=== PATIENT | female | born 1985 | race Caucasian/White ===

== ENCOUNTER 2023-05-23 14:58 | Emergency (ER) | payer SELFPAY ==
--- OUTSIDE RECORDS SUMMARY | 2023-05-23 15:01 | XMS REPORT | Continuity of Care Document ---
Author Name Unknown Address [address] [place] [address] [address] [place] [address] [facility] thconnect Address [address] [facility]. [address] [place] [address] Care Team Providers Care Survey Project Manager Name Role Phone PCP, PATIENT DOES NOT HAVE A Primary Care Physic eduardo Unavailable INDU VEGA Attending Clinician Unavailable Indu Vega PA-C Attending Clinician [phone] Unknown, Attending Attending Clinician Unavailab JOVITA Longoria Attending Clinician Unavailable JOVITA PALACIOS Attending Clinician Unavailable Doctor Unassigned, [place] Attending Clinician U navailable Payers Payer Name Policy Type Policy Number Effective Date Expirati on Date Source [facility] [id number] 2022 00:00:00 Problems Condition Name Condition Details Condition Category Status Onset Date Resolution Date Last Treatment Date Treating Clinician Comments Source Hypertensi on, unspecifie d type Hypertensi on, unspecifie d type Disease Active 09-17 00:00: 00 [facility] Anxiety Anxiety Disease Active 09-17 00:00: 00 [facility] Allergies, Adverse Reactions, Alerts Allergy Name Allergy Type Status Severity Reaction(s) Onset Date Inactive Date Treating Clinician Comments Source NO KNOWN ALLERGIE S Drug Class Active [facility] Social History Social Habit Start Date Stop Date Quantity Comments Source Gender identity [facility] Tobacco use and exposure 2022-09-17 00:00:00 2022-09-17 00:00:00 Smokeless tobacco non-user [facility] Alcohol intake 2022-09-17 00:00:00 2022-09-17 00:00:00 Lifetime non-drinker (finding) [facility] History of Social function 2022-09-17 00:00:00 2022-09-17 00:00:00 [facility] Sex Assigned At 1985 00:00:00 1985 00:00:00 [facility] Smoking Status Start Date Stop Date Source Tobacco smoking consumption unknown [facility] Never smoked tobacco [facility] Medications Ordered Medication Name Filled Medication Name Start Date Stop Date Current Medication? Ordering Clinician Indication Dosage Frequency Signature (SIG) Comments Components Source nirmatrelvi r-ritonavir (PAXLOVID) 300 mg (150 mg x 2)-100 mg tablet 03-27 00:00: 00 Yes [id number] 3{tbl} Take 3 tablets by mouth in the morning and 3 tablets in the evening. [facility] bromphenira mine-pseudo ephedrine-D M (BROMFED DM) 2-30-10 mg/5 mL syrup 03-27 00:00: 00 Yes [id number] 5mL Take 5 mL by mouth 3 (three) times daily as needed for Cold symptoms or Cough. [facility] amoxicillin -clavulanat e (AUGMENTIN) 875-125 mg per tablet 03-27 00:00: 00 Yes [id number] 1{tbl} Take 1 tablet by mouth in the morning and 1 tablet in the evening. [facility] escitalopra m oxalate 10 mg tablet 09-17 15:56: 12 09-17 00:00 :00 No 10mg Take 1 tablet by mouth in the morning. [facility] escitalopra m oxalate 10 mg tablet 09-17 00:00: 00 Yes [id number] 10mg Take 1 tablet by mouth in the morning. [facility] metoprolol tartrate 75 mg Tab 09-17 00:00: 00 Yes [id number] 1{tbl} Take 1 tablet by mouth in the morning. [facility] NIFEdipine ER 60 mg tablet 09-17 00:00: 00 Yes [id number] 60mg Take 1 tablet by mouth in the morning. [facility] metoprolol tartrate 75 mg Tab 07-23 00:00: 00 09-17 00:00 :00 No 1{tbl} Take 1 tablet by mouth in the morning. [facility] NIFEdipine ER 60 mg tablet 07-22 00:00: 00 09-17 00:00 :00 No 60mg Take 1 tablet by mouth in the morning. [facility] Vital Signs Vital Name Observation Time Observation Value Comments S hueyce Systolic blood pressure 2023-03-28 00:33:00 162 mm[Hg] [facility] Diastolic blood pressure 2023-03-28 00:33:00 114 mm[Hg] [facility] Body temperature 2023-03-28 00:31:00 37.89 Edith [facility] Respiratory rate 2023-03-28 00:31:00 19 /min [facility] Body height 2023-03-28 00:31:00 180.3 cm [facility] Body weight 2023-03-28 00:31:00 125.646 kg [facility] BMI 2023-03-28 00:31:00 38.63 kg/m2 [facility] Oxygen saturation in Arterial blood by Pulse oximetry 2023-03-28 00:31:00 99 /min [facility] Systolic blood pressure 2022-09-17 19:57:00 137 mm[Hg] [facility] Diastolic blood pressure 2022-09-17 19:57:00 90 mm[Hg] [facility] Heart rate 2022-09-17 19:50:00 81 /min [facility] Body temperature 2022-09-17 19:50:00 36.06 Edith [facility] Body height 2022-09-17 19:50:00 180.3 cm [facility] Body weight 2022-09-17 19:50:00 124.059 kg [facility] BMI 2022-09-17 19:50:00 38.15 kg/m2 [facility] Oxygen saturation in Arterial blood by Pulse oximetry 2022-09-17 19:50:00 100 /min [facility] Procedures Procedure Date / Time Performed Performing Clinicia n Source POCT MOLECULAR FLU 2023-03-28 00:41:00 Unknown, Attend ing [facility] POCT SARS-COV-2 ANTIGEN (BINAX NOW) 2023-03-28 00:33:00 Lola Marvin [facility] ASSIGNMENT OF BENEFITS 2022-09-17 19:31:55 Docto r Unassigned, Parker Strip [facility] Encounters Start Date/Time End Date/Time Encounter Type Admission Type Attending [facility] Care Department Encounter ID Source 2023-03-27 18:20:00 2023-03-27 19:00:27 Outpatient R INDU VEGA [facility] [id number] [facility] 2023-03-27 18:20:00 2023-03-27 18:40:00 Urgent Care Indu Vega Unknown, Attending [facility] 1.2.840.114 350.1.13.10 4.2.7.2.686 [id number] [facility] 2022-10-17 16:20:00 2022-10-17 16:20:00 Outpatient JOVITA DENNISON CHRISTINE [facility] [id number] [facility] 2022-09-20 00:00:00 2022-09-20 00:00:00 Telephone Suzanne [facility] GABRIELLE[facility] 1.2.840.114 350.1.13.10 4.2.7.2.686 [id number] [facility] 2022-09-17 14:50:00 2022-09-17 16:00:20 Office Visit Suzanne [facility] GABRIELLE[facility] 1.2.840.114 350.1.13.10 4.2.7.2.686 [id number] [facility] 2022-09-17 14:50:00 2022-09-17 16:00:20 Outpatient JOSIAS DENNISONINE KLEKeyona, JOVITA [facility] [id number] [facility] 2022-09-17 00:00:00 2022-09-17 00:00:00 Orders Only Doctor Unassigned, [place] Strip [facility] 1.2.840.114 350.1.13.10 4.2.7.2.686 [id number] [facility] Results Test Description Test Time Test Comments Results Result Co mments Source [facility] (BINAX NOW)2023-03-28 00:48:00* Test Item Value Reference Range Interpretation Comme nts POCT SARS-COV-2 ANTIGEN (robel t code = 32321-7) Positive Not Detected A On board controls acceptable with C Line (test code = 3574) Yes Lab Interpretation (test cod e = 18168-2) Abnormal [facility] Notes Date/Time Note Provider Source 2022-09-23 13:47:45 35wqonPgHWzksPyfCH+8 daptXwAlAhVS p/bfVd2kFzfVIkagK022TgP8+hK4+2fu 1774-01-63J62:47:45 Contacted patient, patient stated she will start taking ibuprofen 800mg and call back if it does not help. 74792-9Ipdcogmmr encounter JywvFS5552-43-97X69:48:31Telepho ne encounter NoteTXT1.2.840.403790.1.13.104.2 .7.2.780152|[id number] e for patient kclv70458-2HeeoKDKPUUFAVO[address] PyfiPtzijuojjOnsjyxejoHQRA558814 8271IICUMVMRWOTSOVKYNBIVIZ6716-7 :48:311.2.840.148689.1.72 .3.15|1.2.840.687733.1.13.104.2. 7.2.727879_[id number] [facility] 2022-09-23 11:19:55 VzW4Bzu7nb9eApfcci1K glOjSfEzNBa7 oYR+ecuNeNLsSjLL1NWNIMpEED4zXbMw 3467-31-12I11:19:55 Attempted to contact patient. No answer. Left message to call back. 99989-4Vyeuzicca encounter TdcuJR2615-77-42Q93:20:03Telepho ne encounter NoteTXT1.2.840.340279.1.13.104.2 .7.2.078591|[id number] e for patient znrz46571-7EcdnCMKZUTIFTY[address] 1248IGVNPFNHMHQRHZIMWMUIEM7242-0 8-07T11:20:031.2.840.869029.1.72 .3.15|1.2.840.434578.1.13.104.2. 7.2.727879_[id number] [facility] 2022-09-20 17:23:23 842JW6s6f7iyJRQ+ooHs JQFYoTJrT9H3 dFH7LP/b9kEshLtmZWX9H0pfAJvgFUDv 8224-14-55C41:23:23 Attempted to contact patient. No answer. Left message to call back.Kelsie Solomon LVN 09/20/2022 5:23 PM 63786-4Cwuubmnzc encounter NjwyTR7286-28-16P37:23:39Telepho ne encounter NoteTXT1.2.840.792461.1.13.104.2 .7.2.930213|[id number] e for patient tacm05053-0HqjvYT820402582Mqjrej hermes Solomon [address] 3773CECCKIVBVLCOOSZDLMJHOV1075-3 7:23:391.2.840.130515.1.72 .3.15|1.2.840.923879.1.13.104.2. 7.2.727879_[id number] Kelsie Solomon [facility] 2022-09-20 17:12:24 BdsshGku9Az1LuF9DqOA 6TX60+4Utw44 IfVUP/e95GAzCsqqL9lKe7rNmuv1ceE5 3508-76-92N68:12:24 I would recommend prescription strength anti-inflamatories. Does she have any? 38885-0Xyudglyby encounter FzqwYV6076-11-88K04:13:05Telepho ne encounter NoteTXT1.2.840.874810.1.13.104.2 .7.2.476614|[id number] e for patient rcpg96843-6ObldFUHWPEFHRE[address] 5526ZGEHPVKAYVADNDLGTUJEMZ1416-0 7:13:051.2.840.008743.1.72 .3.15|1.2.840.529842.1.13.104.2. 7.2.727879_[id number] [facility] 2022-09-20 16:13:11 pxZCPMjbtqW9FGJJFcMm Wj74/nC68YMY fqKei1PPETw+KSWFxKmdwjeXVCsD1kdU 6735-13-87N22:13:11 Please review and advise. Recent VisitsDate Type Provider Dept 09/17/22 Office Visit Jovita Palacios MD [facility] Showing recent visits within past 540 days with a meds authorizing provider and meeting all other requirementsFuture AppointmentsDate Type Provider Dept 10/17/22 Appointment Jovita Palacios MD [facility] Showing future appointments within next 150 days with a meds authorizing provider and meeting all other requirements 85338-0Qkrzolsih encounter KrcyYR1821-19-72L72:13:28Telepho ne encounter NoteTXT1.2.840.108342.1.13.104.2 .7.2.863243|[id number] e for patient xppa49061-6LowlIOFMUQZRTU[address] EkoaGyuuvikrjKnyhprkxzMJKS703770 5586MVEPXGWVIPTAUAZEZWCDGM9315-9 8-04T16:13:281.2.840.041817.1.72 .3.15|1.2.840.906007.1.13.104.2. 7.2.727879_[id number] [facility] 2022-09-20 15:48:27 7pqGOGDR8fDbfXOP919K PXOKzxLwA6Hl b+M7h9EGS0YhSrgn8IE6TJa2Aw6C9YX/ 3586-23-62A83:48:27 Pt called and states that she is still having knee pain. She is wanting recommendations on what to do next. Please advise. Call back number: [phone] signed by Erika Persaud at 09/20/2022 3:49 PM AOL55808-4Cdmtarbjv encounter PtpgOF3019-72-89Y76:49:19Telepho ne encounter NoteTXT1.2.840.258367.1.13.104.2 .7.2.483583|[id number] [facility]mes [facility] patient zkwe13862-4ThvzZJ05990704Crffcly R [address] YlfzThelinzmnCbjsaeqgqGEKQ773612 0753SIAAJXWWHRHFZHSPBSIBVL6934-1 8-04T15:49:191.2.840.360673.1.72 .3.15|1.2.840.587060.1.13.104.2. 7.2.727879_[id number] Erika Pritchard [facility]"
--- NOTE | 2023-05-23 16:19 | RAD REPORT ---
EXAM DESCRIPTION: RAD - Knee Right 3 View - 05/23/2023 4:09 pm CLINICAL HISTORY: laceration COMPARISON: No comparisons FINDINGS/IMPRESSION: No acute fracture. No malalignment. Slight medial and lateral compartment narro wing. No radiopaque foreign body.
[2023-05-23] MEDS ORDERED: TDAP (DIPHTH,PERTUSS(ACELL),TET VAC) 0.5 ML VIAL IMVAC ONE (16:25)
[2023-05-23] MEDS ORDERED: LIDOCAINE 1% MPF 5 ML VIAL ONE (17:48)
--- NOTE | 2023-05-23 18:06 | EDPHYS ---
Physician Documentation [facility] Name: Chelita Beltran Age: 37 yrs Sex: Female : 1985 Arrival Date: 05/23/2023 Time: 14:58 Bed 16 Private MD: ED Physician Timoteo Luz HPI: 05/22 15:45 This 37 yrs old Female presents to ER via Ambulatory with complaints of Leg Laceration. cp 15:45 The patient has a laceration related to: working, occurred at work, and [employer]. cp 15:45 The laceration(s) is(are) located on the right knee. Onset: The symptoms/episode cp began/occurred just prior to arrival. Associated signs and symptoms: The patient has no apparent associated signs or symptoms. 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 - Infectious Disease History:: Denies. - Social history:: Smoking status: Patient denies any tobacco usage or history of. ROS: 15:50 Neck: Negative for pain with movement, pain at rest, cp 15:50 Back: Negative for pain at rest, pain with movement, 15:50 Skin: Positive for laceration(s), of the right knee, 15:50 All other systems are negative, Exam: 15:55 Constitutional: The patient appears in no acute distress, alert, awake, well developed, cp well nourished, obese, 15:55 Head/Face: Normocephalic, atraumatic. cp 15:55 Cardiovascular: Rate: normal, 15:55 Respiratory: the patient does not display signs of respiratory distress, Respirations: normal, 15:55 Skin: injury, laceration(s), the wound is approximately 2 cm(s), of the medial side of right knee below joint, that can be described as no foreign body, linear, with mild bleeding, Vital Signs: 15:23 BP 183 / 127; Pulse 75; Resp 17; Temp 97.9; Pulse Ox 99% ; Weight 113.4 kg; Height 5 ll1 ft. 11 in. ; Pain 3/10; 17:54 BP 155 / 108; Pulse 62; Resp 16; Pulse Ox 100% on R/A; tl4 18:28 BP 168 / 99; Pulse 68; Resp 16; Temp 97.9(O); Pulse Ox 100% on R/A; Pain 0/10; tl4 15:23 Body Mass Index 34.87 (113.40 kg, 180.34 cm) ll1 15:23 Pain Scale: Adult ll1 18:28 Pain Scale: Adult tl4 Laceration: 18:10 Wound Repair of 2cm ( 0.8in ) subcutaneous laceration to medial side of right knee. cp Linear shaped.. Distal neuro/vascular/tendon intact. Anesthesia: Local anesthetic administered with 3 mls of 1% lidocaine. Wound prep: Simple cleansing by me. Skin closed with 2 4-0 Prolene using simple sutures and sterile technique. Dressed with Bacitracin, bandaid. Patient tolerated well. MDM: 15:26 Patient medically screened. cp 18:05 Data reviewed: vital signs, nurses notes, radiologic studies, plain films. cp 18:05 Differential diagnosis: superficial laceration, vascular injury, foreign body. cp Independent interpretation of the following test(s) in the Emergency Department X-Ray: My interpretation is images of right knee negative for foreign body. Counseling: I had a detailed discussion with the patient and/or guardian regarding the historical points, exam findings, and any diagnostic results supporting the discharge/admit diagnosis, radiology results, the need for outpatient follow up, a family practitioner, to return to the emergency department if symptoms worsen or persist or if there are any questions or concerns that arise at home. Response to treatment: the patient's symptoms have markedly improved after treatment, and as a result, I will discharge patient. 05/22 15:31 Order name: XRAY Knee RIGHT 3 view; Complete Time: 17:01 cp 05/22 16:41 Order name: Wound Care; Complete Time: 18:28 cp 04/05 16:41 Order name: Dressing - Wound; Complete Time: 17:53 cp 05/22 16:41 Order name: Gloves, Sterile; Complete Time: 17:53 cp 05/22 16:41 Order name: Setup Suture Tray; Complete Time: 17:53 cp 05/22 17:10 Order name: Blood Pressure Recheck; Complete Time: 17:54 cp Administered Medications: 16:29 Drug: Tetanus-Diphtheria Toxoid IM Adult 0.5 ml IM once; Provide Vaccine Information ll1 Statement (VIS). {Coiled Tubing Supervisor: Fluid; Exp: FriMar 01 2025; Lot #: [id number]; Series: 1 of ; Patient Consent: Obtained; Date/Time: ; Source Name: Chelita Beltran; Source Relationship: Self; [facility] [address]; ; Education: Provided; VIS Presented Date: ; VIS Publication: Tetanus/Diphtheria (Td) VIS 04/12/2014 (historic)} Route: IM; Site: right gluteus; 17:53 Follow up: Response: No adverse reaction tl4 17:53 Drug: Lidocaine Infiltration (1 %) 5 ml 5 ml Infiltration once; to bedside {Note: tl4 Administered by PA. Mar} Volume: 5 ml; Route: Infiltration; 17:54 Follow up: Response: No adverse reaction tl4 Disposition Summary: 05/23/23 18:06 Discharge Ordered Notes: Location: Home cp Problem: new cp Symptoms: have improved cp Condition: Stable cp Diagnosis - Laceration without foreign body of knee - right cp Followup: cp - With: Private Physician - When: 7 - 10 days - Reason: Staple/Suture removal Discharge Instructions: - Discharge Summary Sheet cp - Laceration Care, Adult cp - Sutured Wound Care cp Forms: - Medication Reconciliation Form cp - Thank You Letter cp - Antibiotic Education cp - Prescription Opioid Use cp - Patient Portal Instructions cp - Leadership Thank You Letter cp Prescriptions: - Cephalexin 500 mg Oral capsule - take 1 capsule ORAL route every 8 hours for 7 days; 21 capsule; Refills: 0, cp Product Selection Permitted Signatures: Dispatcher [employer] EDAL Aba Manzanares PA PA cp Lewis, Lynsay, RN RN ll1 Buzz Stroud RN RN tl4 Corrections: (The following items were deleted from the chart) 05/23 18:12 18:11 Skin: Positive for laceration(s), of the right knee, cp cp 18:12 18:11 Back: Negative for pain at rest, pain with movement, cp cp 18:12 18:11 Neck: Negative for pain with movement, pain at rest, cp cp 18:12 18:11 All other systems are negative, cp cp
--- NOTE | 2023-05-23 18:06 | ER ---
Nurse's Notes [facility] Name: Chelita Beltran Age: 37 yrs Sex: Female : 1985 Arrival Date: 05/23/2023 Time: 14:58 Bed 16 Private MD: Diagnosis: Laceration without foreign body of knee-right Presentation: 05/22 15:23 Chief complaint: Patient states: Cut R inner thigh area on constance equipment today at ll1 work. No active bleeding, would like to update tetanus. Coronavirus screen: Client denies travel out of the [place] in the last 14 days. At this time, the client does not indicate any symptoms associated with coronavirus-19. Ebola Screen: Patient denies travel to an Ebola-affected area in the 21 days before illness onset. Initial Sepsis Screen: Does the patient meet any 2 criteria? No. Patient's initial sepsis screen is negative. Does the patient have a suspected source of infection? No. Patient's initial sepsis screen is negative. Risk Assessment: Do you want to hurt yourself or someone else? Patient reports no desire to harm self or others. Onset of symptoms was May 23, 2023. 15:23 Method Of Arrival: Ambulatory ll1 15:23 Acuity: TRISTAN 4 ll1 Triage Assessment: 15:24 General: Appears uncomfortable, Behavior is cooperative, appropriate for age, anxious. ll1 Pain: Complains of pain in right leg Quality of pain is described as aching. 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 Musculoskeletal:. 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:00 LMP N/A - control method, Not tl4 Historical: - Allergies: 17:55 No Known Allergies; tl4 - Home Meds: 17:55 metoprolol succinate 25 mg oral Tablet, Extended Release 24 hr 3 tabs daily [Active]; tl4 nifedipine 60 mg Oral tablet, extended release 1 tab daily [Active]; citalopram 10 mg tablet 1 tab daily [Active]; aspirin 81 mg Oral capsule 1 cap daily [Active]; Zyrtec 10 mg Oral tablet 1 tab daily [Active]; - PMHx: 17:55 Hypertensive disorder; Depressive disorder; tl4 Historical Immunization: - Administered Vaccines 17:53 Lidocaine Infiltration (1 %) 5 ml tl4 16:29 Tetanus-Diphtheria Toxoid IM Adult 0.5 ml ll1 Steam Turbine Operator: Kimble; Exp: FriMar 01 2025; Lot #: [id number]; Series: 1 of 1; Patient Consent: Obtained; Date/Time: ; Source Name: Chelita Beltran; Source Relationship: Self; Address Information: [facility] [address], [facility] [address]; ; Education: Provided; VIS Presented Date: ; VIS Publication: Tetanus/Diphtheria (Td) VIS 04/12/2014 (historic) - Immunization history:: Adult Immunizations up to date, Last tetanus immunization: < 10 years ago. - Infectious Disease History:: Denies. - Social history:: Smoking status: Patient denies any tobacco usage or history of. Screenin:58 [facility] ED Fall Risk Assessment (Adult) History of falling in the last 3 months, tl4 including since admission No falls in past 3 months (0 pts) Confusion or Disorientation No (0 pts) Intoxicated or Sedated No (0 pts) Impaired Gait No (0 pts) Mobility Assist Device Used No (0 pt) Altered Elimination No (0 pt) Score/Fall Risk Level 0 - 2 = Low Risk Oriented to surroundings, Maintained a safe environment, Educated pt \T\ family on fall prevention, incl call for assistance when getting out of bed, Assessed \T\ reinforced patient's understanding of fall precautions, Hourly rounding (assess needs \T\ fall precautionary measures) done, Used ambulatory aids as needed (educated on \T\ assisted with), Used gait belt as appropriate. Abuse screen: Denies threats or abuse. Denies injuries from another. Nutritional screening: No deficits noted. Tuberculosis screening: No symptoms or risk factors identified. Assessment: 16:30 Reassessment: No changes from previously documented assessment. Patient and/or family ll1 updated on plan of care and expected duration. Pain level reassessed. Patient is alert, oriented x 3, equal unlabored respirations, skin warm/dry/pink. 17:54 Reassessment: No changes from previously documented assessment. Patient and/or family tl4 updated on plan of care and expected duration. Pain level reassessed. Patient is alert, oriented x 3, equal unlabored respirations, skin warm/dry/pink. Vital Signs: 15:23 BP 183 / 127; Pulse 75; Resp 17; Temp 97.9; Pulse Ox 99% ; Weight 113.4 kg; Height 5 ll1 ft. 11 in. ; Pain 3/10; 17:54 BP 155 / 108; Pulse 62; Resp 16; Pulse Ox 100% on R/A; tl4 18:28 BP 168 / 99; Pulse 68; Resp 16; Temp 97.9(O); Pulse Ox 100% on R/A; Pain 0/10; tl4 15:23 Body Mass Index 34.87 (113.40 kg, 180.34 cm) ll1 15:23 Pain Scale: Adult ll1 18:28 Pain Scale: Adult tl4 ED Course: 15:01 Patient arrived in ED. rg4 15:04 Aba Manzanares PA is PHCP. cp 15:04 Timoteo Luz MD is Attending Physician. cp 15:24 Triage completed. ll1 15:24 Arm band placed on. ll1 15:34 Wound care: to laceration located on right leg was cleaned with Hibiclens, dressed with ll1 band aid, Patient tolerated well. 16:11 XRAY Knee RIGHT 3 view In Process Unspecified. EDMS 16:29 Silvano Ho, RN is Primary Nurse. ll1 16:32 Patient placed in an exam room, on a stretcher. ll1 17:59 Patient has correct armband on for positive identification. Bed in low position. Call tl4 light in reach. Side rails up X 1. Provided Education on: ED process. Client placed on continuous cardiac and pulse oximetry monitoring. NIBP monitoring applied. Door closed. Lights dimmed. Moved to private room. 17:59 No provider procedures requiring assistance completed. Patient did not have IV access tl4 during this emergency room visit. Administered Medications: 16:29 Drug: Tetanus-Diphtheria Toxoid IM Adult 0.5 ml IM once; Provide Vaccine Information ll1 Statement (VIS). {Steam Turbine Operator: Kimble; Exp: FriMar 01 2025; Lot #: [id number]; Series: 1 of 1; Patient Consent: Obtained; Date/Time: ; Source Name: Chelita Beltran; Source Relationship: Self; [facility] [address] [facility] [facility] [address]; ; Education: Provided; VIS Presented Date: ; VIS Publication: Tetanus/Diphtheria (Td) VIS 04/12/2014 (historic)} Route: IM; Site: right gluteus; 17:53 Follow up: Response: No adverse reaction tl4 17:53 Drug: Lidocaine Infiltration (1 %) 5 ml 5 ml Infiltration once; to bedside {Note: tl4 Administered by JÚNIOR Manuel.} Volume: 5 ml; Route: Infiltration; 17:54 Follow up: Response: No adverse reaction tl4 Medication: 17:59 Vaccine Information Statement (VIS) provided today. Questions and/or concerns tl4 addressed. VIS edition date: April 12, 2014. Outcome: 18:06 Discharge ordered by . cp 18:28 Discharged to home ambulatory, tl4 18:28 Condition: stable 18:28 Discharge instructions given to patient, Instructed on discharge instructions, follow up and referral plans. wound care, Demonstrated understanding of instructions, follow-up care, medications, wound care, Prescriptions given X 1, 18:29 Patient left the ED. tl4 Signatures: Dispatcher [employer] EDMS Aba Manzanares PA PA cp Garcia, Rubi rg4 Silvano Ho RN RN ll1 Buzz Stroud RN RN tl4
[2023-05-23 19:55] VITALS: BP 168/99; TEMP 97.9; O2SAT 100
== END 2023-05-23 18:29 | disposition home or self-care (01) ==
LOC: ER 14:58
PROC: 0HQKXZZ Repair Right Lower Leg Skin, External Approach (ICD-10-PCS; principal; 2023-05-23)
DX: S81.011A Laceration without foreign body, right knee, initial encounter (principal)
CPT/HCPCS: 90471; 99284; J2001